=== PATIENT | female | born 1975 | race Caucasian/White ===

== ENCOUNTER 2017-09-24 12:12 | Emergency (ER) | payer BC ==
[2017-09-24 13:47] LABS: ABS Basophils 0.1 10^3/ul (0-0.2); ABS Eosinophils 0.1 10^3/ul (0-0.6); ABS Lymphocytes 2.2 10^3/ul (1.0-4.8); ABS Monocytes 0.5 10^3/ul (0-0.8); ABS Neutrophils 6.5 10^3/ul (1.5-7.7); ABS Nucleated RBC 0 10^3/ul; Eosinophil % 0.6 % (0-6); Hematocrit 39 % (35-47); Hemoglobin 13.4 g/dl (12.0-16.0); Lymphocyte % 23.9 % (25-47); Mean Corpuscular HGB Conc 34 g/dl (31-36); Mean Corpuscular Hemoglobin 30 pg (27-31); Mean Corpuscular Volume 90 fL (80-97); Mean Platelet Volume 8.5 um3 (7.4-10.4); Nucleated Red Blood Cells % 0; Platelet Count 292 10^3/ul (150-450); Red Blood Count 4.39 10^6/ul (4.0-5.4); Red Cell Distribution Width 13 % (10.5-15); White Blood Count 9.4 10^3/ul (3.5-10.8)
--- NOTE | 2017-09-24 13:48 | RAD ---
INDICATION: Chest pain. COMPARISON: Comparison is made with a prior study from January 31, 2014. TECHNIQUE: Dual-energy PA and lateral views of the chest were obtained. FINDINGS: The heart is within normal limits in size. Mediastinal and hilar contours appear within normal limits. The lungs are clear. No pleural effusion or pneumothorax is seen. IMPRESSION: NO EVIDENCE FOR ACTIVE CARDIOPULMONARY DISEASE.
[2017-09-24 14:08] LABS: INR 1.01 (0.77-1.02)
[2017-09-24 17:04] VITALS: BP 150/92
--- NOTE | 2017-09-24 18:35 | ED ---
Cyndi Sneed Elizabeth, scribed for Ben Markham MD on 09/24/17 at 1313 . HPI Chest Pain - HPI Summary HPI Summary: This patient is a 42 year old F presenting to [facility] with a chief complaint of tight left chest pain since 2 hours ago. The patient rates the pain 5/10 in severity. Symptoms aggravated by nothing. Symptoms alleviated by nothing. Patient reports left chest pain and shortness of breath at 01:30 this morning for 1 hour, but it resolved and she was able to go back to sleep. Patient also reports nausea, pressure and pain in her neck and left arm. Patient took ASA x2 this morning. Patient reports feeling a sharp pain in her chest last week after hiking up a hill. - History of Current Complaint Chief Complaint: EDChestPainROMI Time Seen by Provider: 09/24/17 12:28 Hx Obtained From: Patient Onset/Duration: Started Hours Ago - 2 hours ago Timing: Constant, Lasting Hours Current Severity: Moderate Pain Intensity: 5 Pain Scale Used: 0-10 Numeric Chest Pain Location: Left Anterior Chest Pain Radiates To:: Arm - left arm, Neck Character: Pressure/Squeezing, Tightness Aggravating Factor(s): Nothing Alleviating Factor(s): Nothing Associated Signs and Symptoms: Positive: Chest Pain, Shortness of Breath, Nausea Related History: Similar Episode/Dx as: - at 01:30 this morning, resolved after 1 hour - Allergy/Home Medications Allergies/Adverse Reactions: Allergies Allergy/AdvReac Type Severity Reaction Status Date / Time eletriptan AdvReac See Comment Verified 09/24/17 13:33 sumatriptan AdvReac See Comment Verified 09/24/17 13:33 Home Medications: Home Medications Naproxen TAB* [Naprosyn 250 mg TAB*] 500 mg PO DAILY PRN 09/24/17 [History Confirmed 09/24/17] Norethindrone (NF) [Stacia (NF)] 0.35 mg PO DAILY 09/24/17 [History Confirmed 09/24/17] Zolmitriptan (NF) [Zomeg (NF)] 2.5 mg SL DAILY PRN 09/24/17 [History Confirmed 09/24/17] PMH/Surg Hx/FS Hx/Imm Hx Endocrine/Hematology History: Denies: Hx Diabetes Cardiovascular History: Denies: Hx Hypertension, Hx Pacemaker/ICD Sensory History: Denies: Hx Hearing Aid Neurological History: Reports: Hx Migraine Psychiatric History: Denies: Hx Panic Disorder - Surgical History Surgery Procedure, Year, and Place: 2002- LAPAPORSCOPIC. WISDOM TEETH Infectious Disease History: No Infectious Disease History: Denies: Traveled Outside the [place] in Last 30 Days - Family History Known Family History: Positive: Cardiac Disease - dad had ME in his early 60s, mom had ME, Diabetes - dad has diabetes - Social History Hx Tobacco Use: No Review of Systems Positive: Chest Pain Positive: Shortness Of Breath Positive: Nausea Musculoskeletal: Other - pain in left arm All Other Systems Reviewed And Are Negative: Yes Physical Exam - Summary Physical Exam Summary: Appearance: The patient is well-nourished in no acute distress and in no acute pain. Skin: The skin is warm and dry and skin color reflects adequate perfusion. HEENT: The head is normocephalic and atraumatic. The pupils are equal and reactive. The conjunctivae are clear and without drainage. Nares are patent and without drainage. Mouth reveals moist mucous membranes and the throat is without erythema and exudate. The external ears are intact. The ear canals are patent and without drainage. The tympanic membranes are intact. Neck: the neck is supple with full range of motion and non-tender. There are no carotid bruits. There is no neck vein distension. Respiratory: Chest is non-tender. Lungs are clear to auscultation and breath sounds are symmetrical and equal. Cardiovascular: Heart is regular rate and rhythm. There is no murmur or rub auscultated. There is no peripheral edema and pulses are symmetrical and equal. Abdomen: The abdomen is soft and non-tender. There are normal bowel sounds heard in all four quadrants and there is no organomegaly palpated. Musculoskeletal: There is no back tenderness noted. Extremities are non-tender with full range of motion. There is good capillary refill. There is no peripheral edema or calf tenderness elicited. Neurological: Patient is alert and oriented to person, place and time. The patient has symmetrical motor strength in all four extremities. Cranial nerves are grossly intact. Deep tendon reflexes are symmetrical and equal in all four extremities. Psychiatric: The patient has an appropriate affect and does not exhibit any anxiety or depression. Triage Information Reviewed: Yes Vital Signs On Initial Exam: Initial Vitals Temp Pulse Resp BP Pulse Ox 99.2 F 80 17 175/102 100 09/24/17 12:19 09/24/17 12:19 09/24/17 12:19 09/24/17 12:19 09/24/17 12:19 Vital Signs Reviewed: Yes Diagnostics - Vital Signs Vital Signs Temp Pulse Resp BP Pulse Ox 09/24/17 12:19 99.2 F 80 17 175/102 100 - Laboratory Lab Results: Lab Results 09/24/17 09/24/17 09/24/17 Range/Units 13:36 13:36 13:36 WBC 9.4 (3.5-10.8) 10^3/ul RBC 4.39 (4.0-5.4) 10^6/ul Hgb 13.4 (12.0-16.0) g/dl Hct 39 (35-47) % MCV 90 (80-97) fL MCH 30 (27-31) pg MCHC 34 (31-36) g/dl RDW 13 (10.5-15) % Plt Count 292 (150-450) 10^3/ul MPV 8.5 (7.4-10.4) um3 Neut % (Auto) 69.6 (38-83) % Lymph % (Auto) 23.9 L (25-47) % [place] % (Auto) 5.3 (0-7) % Eos % (Auto) 0.6 (0-6) % Baso % (Auto) 0.6 (0-2) % Absolute Neuts (auto) 6.5 (1.5-7.7) 10^3/ul Absolute Lymphs (auto) 2.2 (1.0-4.8) 10^3/ul Absolute Monos (auto) 0.5 (0-0.8) 10^3/ul Absolute Eos (auto) 0.1 (0-0.6) 10^3/ul Absolute Basos (auto) 0.1 (0-0.2) 10^3/ul Absolute Nucleated RBC 0 10^3/ul Nucleated RBC % 0 INR (Anticoag Therapy) 1.01 (0.77-1.02) D-Dimer, Quantitative < 200 (Less Than 230) ng/mL Sodium 138 L (139-145) mmol/L Potassium 4.0 (3.5-5.0) mmol/L Chloride 106 (101-111) mmol/L Carbon Dioxide 27 (22-32) mmol/L Anion Gap 5 (2-11) mmol/L BUN 12 (6-24) mg/dL Creatinine 0.52 (0.51-0.95) mg/dL Est GFR ( Amer) 167.1 (>60) Est GFR (Non-Af Amer) 130.0 (>60) BUN/Creatinine Ratio 23.1 H (8-20) Glucose 92 (70-100) mg/dL Lactic Acid (0.5-2.0) mmol/L Calcium 9.4 (8.6-10.3) mg/dL Total Bilirubin 0.50 (0.2-1.0) mg/dL AST 14 (13-39) U/L ALT 11 (7-52) U/L Alkaline Phosphatase 63 (34-104) U/L Total Creatine Kinase 100 (10-223) U/L CK-MB (CK-2) 2.0 (0.6-6.3) ng/mL Troponin I 0.00 (<0.04) ng/mL Total Protein 6.8 (6.4-8.9) g/dL Albumin 4.2 (3.2-5.2) g/dL Globulin 2.6 (2-4) g/dL Albumin/Globulin Ratio 1.6 (1-3) TSH 2.16 (0.34-5.60) mcIU/mL Beta HCG, Quant < 0.60 mIU/mL 09/24/17 09/24/17 Range/Units 13:36 15:55 WBC (3.5-10.8) 10^3/ul RBC (4.0-5.4) 10^6/ul Hgb (12.0-16.0) g/dl Hct (35-47) % MCV (80-97) fL MCH (27-31) pg MCHC (31-36) g/dl RDW (10.5-15) % Plt Count (150-450) 10^3/ul MPV (7.4-10.4) um3 Neut % (Auto) (38-83) % Lymph % (Auto) (25-47) % [place] % (Auto) (0-7) % Eos % (Auto) (0-6) % Baso % (Auto) (0-2) % Absolute Neuts (auto) (1.5-7.7) 10^3/ul Absolute Lymphs (auto) (1.0-4.8) 10^3/ul Absolute Monos (auto) (0-0.8) 10^3/ul Absolute Eos (auto) (0-0.6) 10^3/ul Absolute Basos (auto) (0-0.2) 10^3/ul Absolute Nucleated RBC 10^3/ul Nucleated RBC % INR (Anticoag Therapy) (0.77-1.02) D-Dimer, Quantitative (Less Than 230) ng/mL Sodium (139-145) mmol/L Potassium (3.5-5.0) mmol/L Chloride (101-111) mmol/L Carbon Dioxide (22-32) mmol/L Anion Gap (2-11) mmol/L BUN (6-24) mg/dL Creatinine (0.51-0.95) mg/dL Est GFR ( Amer) (>60) Est GFR (Non-Af Amer) (>60) BUN/Creatinine Ratio (8-20) Glucose (70-100) mg/dL Lactic Acid 0.5 (0.5-2.0) mmol/L Calcium (8.6-10.3) mg/dL Total Bilirubin (0.2-1.0) mg/dL AST (13-39) U/L ALT (7-52) U/L Alkaline Phosphatase (34-104) U/L Total Creatine Kinase (10-223) U/L CK-MB (CK-2) (0.6-6.3) ng/mL Troponin I 0.00 (<0.04) ng/mL Total Protein (6.4-8.9) g/dL Albumin (3.2-5.2) g/dL Globulin (2-4) g/dL Albumin/Globulin Ratio (1-3) TSH (0.34-5.60) mcIU/mL Beta HCG, Quant mIU/mL Result Diagrams: 09/24/17 13:36 09/24/17 13:36 Lab Statement: Any lab studies that have been ordered have been reviewed, and results considered in the medical decision making process. - Radiology CXR Xray Interpretation: No Acute Changes - IMPRESSION: NO EVIDENCE FOR ACTIVE CARDIOPULMONARY DISEASE. Dr. Markham has reviewed this report. Radiology Interpretation Completed By: Radiologist - EKG 12:19 Cardiac Rate: NL - at 81 BPM EKG Rhythm: Sinus Rhythm EKG Interpretation: NSR, incomplete RBBB Chest Pain Course/Dx - Course Course Of Treatment: Ms. Patel presented with an episode of chest pressure that resolved while she was here. She had had two previous episodes that seemed to come on with exertion and be relieved with rest. She does have a family history of CAD. Her W/U here including a d-dimer and delayed troponin was negative here and her vitals remained stable. I recommended close F/U. - Diagnoses Provider Diagnoses: Chest pain Discharge - Sign-Out/Discharge Documenting (check all that apply): Discharge/Admit/Transfer - Discharge Plan Condition: Stable Disposition: HOME Patient Education Materials: Chest Pain (ED) Referrals: Gem KNIGHT,Kaur Chamorro [Primary Care Provider] - 2 Days Additional Instructions: Follow up with primary care physician in 2-3 days. Return to the emergency department with any new or worsening symptoms. - Billing Disposition and Condition Condition: STABLE Disposition: HOME The documentation as recorded by the Cyndi heard Elizabeth accurately reflects the service I personally performed and the decisions made by , Ben Markham MD.
== END 2017-09-24 17:08 | disposition home or self-care (01) ==
LOC: ED 12:12
DX: R07.9 Chest pain, unspecified (principal); R06.2 Wheezing; R11.0 Nausea; R06.02 Shortness of breath
CPT/HCPCS: 36415; 71046; 80053; 82550; 82553; 83605; 84443; 84484; 84702; 85025; 85379; 85610; 93005; 99283

== ENCOUNTER 2019-05-23 08:07 | Inpatient (IN) | payer BC, OTHER ==
[2019-05-23] MEDS ORDERED: Dinoprostone* 10 MG VAG.SUPP VAGINAL ONE (08:34)
[2019-05-23] MEDS ORDERED: Buffered Lidocaine 1% SYRIN* 1 ML/SYRINGE INTRADERM ONE (08:34)
[2019-05-23] MEDS ORDERED: Lactated Ringers 1000 ML Bag* 1,000 ML IV ONE (08:34)
[2019-05-23] MEDS ORDERED: Penicillin G Potassium IV* 5,000,000 UNITS in NS 0.9% 100 ML* 100 ML IVPB ONE (09:00)
[2019-05-23 09:46] LABS: ABS Eosinophils 0.1 10^3/ul (0-0.6); ABS Lymphocytes 1.6 10^3/ul (1.0-4.8); ABS Monocytes 0.7 10^3/ul (0-0.8); ABS Neutrophils 9.7 10^3/ul (1.5-7.7); Eosinophil % 0.6 %; Hematocrit 35 % (35-47); Hemoglobin 11.9 g/dL (12.0-16.0); Lymphocyte % 13.5 %; Mean Corpuscular HGB Conc 34 g/dL (31-36); Mean Corpuscular Hemoglobin 30 pg (27-31); Mean Corpuscular Volume 87 fL (80-97); Mean Platelet Volume 8.9 fL (7.4-10.4); Platelet Count 282 10^3/uL (150-450); Red Blood Count 4.02 10^6 /uL (3.70-4.87); Red Cell Distribution Width 14 % (10-15); White Blood Count 12.2 10^3/uL (3.5-10.8)
[2019-05-23 10:03] LABS: Urine Benzodiazepine Screen None Detected (None Detect); Urine Opiates Screen None Detected (None Detect)
[2019-05-23 10:04] LABS: Albumin 3.3 g/dL (3.2-5.2); Albumin/Globulin Ratio 1.1 (1-3); BUN/Creatinine Ratio 31.1 (8-20); Calcium 9.2 mg/dL (8.6-10.3); EGFR African American 184.9 (>60); EGFR Non-African American 152.8 (>60); Globulin 2.9 g/dL (2-4); Potassium 4.3 mmol/L (3.5-5.0); Total Bilirubin 0.3 mg/dL (0.2-1.0); Total Protein 6.2 g/dL (6.4-8.9); Uric Acid 4.9 mg/dL (2.3-6.6)
--- NOTE | 2019-05-23 11:14 | HP ---
General Information - Reason for Visit IOL at 37w1d secondary to CHTN with SI PreE - General Information Maternal Age: 43 Grav: 6 Para: 1 SAB: 4 IEA: 0 Estimated Due Date: 06/12/19 Determined By: Early Ultrasound Maternal Blood Type and Rh: O Negative - Results this Serology/RPR Result: Non-Reactive Rubella Result: Immune HBsAg Result: Negative HIV Result: Negative GBS Culture Result: Positive Past Medical History Delivery History: Hx Complicated Vaginal Delivery - PreEclampsia with G1 Pertinent Past Medical History: See Records Pertinent Past Surgical History: None - Laparotomy with RSO in 06/23 endometriosis Pertinent Family History: See Records - Antepartal Records Antepartal Records: Reviewed, Complicated by: - CHTN with SI PreE, GDMA2, AMA at age 43, RH negative Review of Systems Constitutional: Comfortable CV Complaint: No Respiratory: Shortness of Breath: No Gastrointestinal: No Nausea/Vomiting, Normal Bowel Movement Genitourinary: No Dysuria, No Bleeding, No Leaking Fluid Musculoskeletal: No Complaint, No Epigastric Pain Neurological: No Headache, No Visual Changes Movement: Normal - Denies MONSALVE, changes in vision, RUQ pain, fever, chills, n/v, cp, sob Exam Allergies/Adverse Reactions: Allergies eletriptan Adverse Reaction (Verified 05/23/19 10:10) See Comment "whole body heaviness" sumatriptan Adverse Reaction (Verified 05/23/19 10:10) See Comment "whole body heaviness" BP 145/90 Pulse 90 Resp 18 Temp 97.9 O2 Sat 98% Lab Values - Entire Visit: Laboratory Tests 05/23/19 05/23/19 05/23/19 09:20 09:20 09:20 WBC 12.2 H RBC 4.02 Hgb 11.9 L Hct 35 MCV 87 MCH 30 MCHC 34 RDW 14 Plt Count 282 MPV 8.9 Neut % (Auto) 79.5 Lymph % (Auto) 13.5 Wheeler % (Auto) 6.0 Eos % (Auto) 0.6 Baso % (Auto) 0.4 Absolute Neuts (auto) 9.7 H Absolute Lymphs (auto) 1.6 Absolute Monos (auto) 0.7 Absolute Eos (auto) 0.1 Absolute Basos (auto) 0.0 Absolute Nucleated RBC 0.0 Nucleated RBC % 0.0 Sodium 136 Potassium 4.3 Chloride 108 Carbon Dioxide 21 L Anion Gap 7 BUN 14 Creatinine 0.45 L Est GFR ( Amer) 184.9 Est GFR (Non-Af Amer) 152.8 BUN/Creatinine Ratio 31.1 H Glucose 92 POC Glucose (mg/dL) Uric Acid 4.9 Calcium 9.2 Total Bilirubin 0.30 AST 22 ALT 20 Alkaline Phosphatase 95 Total Protein 6.2 L Albumin 3.3 Globulin 2.9 Albumin/Globulin Ratio 1.1 Urine Opiates Screen Ur Barbiturates Screen Ur Phencyclidine Scrn Ur Amphetamines Screen U Benzodiazepines Scrn Urine Cocaine Screen U Cannabinoids Screen Blood Type O Negative 05/23/19 05/23/19 09:20 09:58 WBC RBC Hgb Hct MCV MCH MCHC RDW Plt Count MPV Neut % (Auto) Lymph % (Auto) Wheeler % (Auto) Eos % (Auto) Baso % (Auto) Absolute Neuts (auto) Absolute Lymphs (auto) Absolute Monos (auto) Absolute Eos (auto) Absolute Basos (auto) Absolute Nucleated RBC Nucleated RBC % Sodium Potassium Chloride Carbon Dioxide Anion Gap BUN Creatinine Est GFR ( Amer) Est GFR (Non-Af Amer) BUN/Creatinine Ratio Glucose POC Glucose (mg/dL) 80 Uric Acid Calcium Total Bilirubin AST ALT Alkaline Phosphatase Total Protein Albumin Globulin Albumin/Globulin Ratio Urine Opiates Screen None detected Ur Barbiturates Screen None detected Ur Phencyclidine Scrn None detected Ur Amphetamines Screen None detected U Benzodiazepines Scrn None detected Urine Cocaine Screen None detected U Cannabinoids Screen None detected Blood Type - Measurements Height: 5 ft 3 in Weight: 218 lb Weight in lbs: 218.355992 Body Mass Index (BMI): 38.6 Pre- Weight: 197 lb Weight Gained This : 21 lbs and 0 ozs - Exam Breast: Breast Exam Deferred CVA: No CVA Tenderness Extremities: No Edema Heart: Normal Rhythm/Heart Sounds HEENT: No Significant Findings Lungs: Clear Bilaterally Rectal: Rectal Exam Deferred Reflexes: DTR 2+ - normoreflexive Thyroid: No Thyromegaly Other Exam Findings: no clonus - Abdominal Exam Abdomen Exam: Non-Tender, Fundal Height Consistent with Dates - Ultrasound/Biophysical Profile Ultrasound Status: Bedside Exam Ultrasound Findings: Vertex Targeted Exam Findings Estimated Weight: 7#8oz Cervical Exam: 2cm Effacement: 50% Station: -3 Presenting Part: Vertex Membrane Status: Intact Bleeding/Discharge: None EFM Findings - External Monitor Findings Baseline Heart Rate: 125 External Monitor Findings: Accelerations Present, No Pattern of Variable or Late Decelerations, Variability Moderate, Baseline Stable External Monitor Findings Comment: Reactive with moderate variability, no decelerations Contractions: Irregular Assessment/Plan - Assessment 43 y/o at 37w1d with CHTN w/ SI PreE, GDMA2 also complicated by AMA, RH negative GBS + - Obstetrical Risk Factors Obstetrical Risk Factors: GBS Positive, PreEclampsia, Chronic Hypertension, Gestational Diabetes - Plan Plan: Induction, Antibiotic Prophylaxis - IOL secondary to CHTN with SI PreE, pt is asymptomatic, no persistent severe range BP's, will continue to monitor closely, check labs now. GDMA2 - will check FSBG post prandial while still in latent phase beginning IOL. Once in labor, will check FSBG q 2 hours, Insulin Drip if indicated. RH Negative - Rhogam as indicated. GBS Positive - Penicillin with ROM'd or active labor. Will start IOL with cervidil.
--- NOTE | 2019-05-23 11:46 | PTEDU ---
Patient Name: KRISTINE MACKENZIE GURDEEPKRISTINE selected video: Never Ever Shake a Baby to view on 05/23/2019 at 11:44:56 AM from [facility] [id number]
[2019-05-23] MEDS ORDERED: Labetalol TAB* 100 MG PO ONE (13:06)
[2019-05-23] MEDS: Lactated Ringers 1000 ML Bag* 1,000 ML IV SCH (19:13)
[2019-05-23] MEDS ORDERED: Labetalol TAB* 200 MG PO SCH (21:00)
[2019-05-23] MEDS ORDERED: Labetalol TAB* 100 MG PO SCH (21:00)
[2019-05-23] MEDS ORDERED: Promethazine INJ(RESTRICTED)* 25 MG/ML 1 ML VIAL IV PRN (22:38)
[2019-05-23] MEDS ORDERED: Morphine 4 MG/ML VIAL (1 ml) 4 MG/ML VIAL IV PRN (22:38)
[2019-05-23] MEDS ORDERED: Morphine INJ* 4 MG/ML 1 ML SYRINGE (NEW SYRINGE VERSION) IV PRN (22:53)
[2019-05-24] MEDS: Penicillin G Potassium IV* 3,000,000 UNITS in NS 0.9% 100 ML* 100 ML IVPB SCH ×5 (00:46→17:08)
--- NOTE | 2019-05-24 03:08 | PN ---
Progress Note - Progress Note Date of Service: 05/24/19 Note: Pt had cervidil placed in the 1000 hour on 05/23. Removed after developing tachysystole. Pt noted to have changed cervix to 2cm at that time, soft, anterior. Pt continued to contract throughout the afternoon and requested IV pain medications. Was given Morphine 4mg and Phenergan 12.5mg with good effect. She slept for several hours. Re-examined on wakening and 4cm/50%/-2. AROM'd with clear fluid at ~3am. Gen: nad, aaox3 CV: rrr Pulm: non-labored respirations Abd: charissa, moderate to palpation Ext: warm, nttp, no edema, normoreflexive, no clonus FHT: 135/moderate/+accels/no decels Maguayo: q 2-4 minutes 43 y/o at 37w2d with CHTN with SI PreE, here for IOL: - AVSS, afebrile, hemodynamically stable - IOL: cervidil --> AROM at 3am 1/3 with clear fluid, charissa regularly, will expectantly manage, augment as clinically indicated - CHTN with SI PreE: Plts, AST/ALT, Cr, Uric Acid all WNL. 24 hour urine protein 609 collected outpatient. Pt is asymptomatic, denies MONSALVE, changes in vision, RUQ pain, normoreflexive and negative clonus. She has occasional severe range BP's, but no persistent severe range. Continue Labetalol 200mg BID. If severe range BP's or other s/sx of severe features will push IV Anti- hypertensive and start Magnesium sulfate for seizure ppx. - GDMA2 - Last FSBG was 2 hours PP after dinner and 107. Will re-check in AM at 6am and q 2 hours thereafter. - GBS Positive - on Penicillin for GBS PPX DO EUGENE Mahmood
[2019-05-24] MEDS ORDERED: Labetalol TAB* 200 MG PO ONE (05:45)
[2019-05-24] MEDS ORDERED: Oxytocin in LR* 20 UNITS/1,000 ML BAG IVPB SCH (07:00)
[2019-05-24] MEDS ORDERED: OBEPIDURAL* 250 ML EPIDURAL ONE (10:58)
[2019-05-24] MEDS ORDERED: Sodium Citrate/Citric Acid* 15 ML UDC PO PRN (12:18)
[2019-05-24] MEDS ORDERED: Famotidine TAB* 20 MG PO PRN (12:18)
[2019-05-24] MEDS ORDERED: Lactated Ringers 1000 ML Bag* 500 ML IV PRN ×2 (12:18)
[2019-05-24] MEDS ORDERED: Phenylephrine 40 MCG/ML SYRINGE IV PUSH PRN ×2 (12:18)
[2019-05-24] MEDS ORDERED: Lactated Ringers 1000 ML Bag* 1,000 ML IV ONE (12:18)
[2019-05-24] MEDS ORDERED: Lactated Ringers 1000 ML Bag* 1,000 ML IV SCH ×3 (13:00→21:00)
[2019-05-24] MEDS ORDERED: OBEPIDURAL* 250 ML EPIDURAL SCH (13:00)
[2019-05-24] MEDS: Lactated Ringers 1000 ML Bag* 1,000 ML IV SCH (13:33)
[2019-05-24] MEDS ORDERED: Lidocaine 2% w/ EPI 1:200,000* 20 ML SDV VIAL ONE (16:33)
[2019-05-24] MEDS: Labetalol TAB* 200 MG PO SCH ×3 (17:07→21:23)
[2019-05-24] MEDS: Misoprostol TAB* 200 MCG ONE ×2 (20:30→21:51)
[2019-05-24] MEDS ORDERED: Acetaminophen TAB* 325 MG PO PRN (20:43)
[2019-05-24] MEDS ORDERED: Dibucaine 1% 28.35 GM TUBE PR PRN (20:43)
[2019-05-24] MEDS ORDERED: Glycerin ADULT SUPP PR PRN (20:43)
[2019-05-24] MEDS ORDERED: Simethicone TAB* 80 MG TAB.CHEW PO SCH (21:00)
[2019-05-24] MEDS: Ibuprofen TAB* 600 MG PO PRN (21:00)
[2019-05-24] MEDS: Witch Hazel PAD* JAR TOPICAL PRN (21:01)
--- NOTE | 2019-05-24 21:24 | PROCNOTE ---
[facility] OB: Delivery Note - Delivery A Date of : 05/24/19 Time of : 20:12 [place] Sex: Female Score 1 Minute: 9 Score 5 Minutes: 9 Gestational Age in Weeks and Days at Delivery: 37 Weeks and 2 Days Delivery Method: Spontaneous Vaginal Labor: Induced Did Patient attempt ?: N/A, No Previous Amniotic Fluid: Clear Estimated Blood Loss: 300 Anesthesia/Analgesia: CEI for Labor Delivered By: Alicia Michelle - Nursery Level of Nursery: Regular/Bedside - Perineum Perineal Injury: 1st Degree Perineal Repair: By Delivering Practioner - Events Delivery Events of Note: Pitocin During Labor - Additional Delivery Notes Additional Delivery Notes: Pt came for induction due to CHTN with superimposed PEC. She got a cervidil and began charissa, underwent AROM and then was started on pitocin. Total length of induction was about 36hrs. She received an epidural and progressed to fully dilated. She pushed x2hrs to deliver the infant's head in PETER position followed quickly by the shoulders and the rest of the body. Baby was placed on mom's abdomen. After >1min cord was clamped x2 and cut. Cord blood collected. Fundus initially firm but then she had several gushes of fluid so cytotec was given. First degree lac was repaired with 3-0 vicryl rapide in the usual fashion. Fundus firm and with good hemostasis. Mom and baby stable at time of note.
[2019-05-25] MEDS ORDERED: Lidocaine 1% INJ* 10 MG/ML 30 ML SDV ONE (00:16)
[2019-05-25] MEDS: Ibuprofen TAB* 600 MG PO PRN ×3 (02:44→17:04)
[2019-05-25] MEDS: Labetalol TAB* 200 MG PO SCH ×2 (08:46→20:51)
[2019-05-25] MEDS: Docusate CAP* 100 MG PO SCH ×3 (08:46→20:53)
[2019-05-25 11:44] LABS: ABS Basophils 0.1 10^3/ul (0-0.2); ABS Eosinophils 0.1 10^3/ul (0-0.6); ABS Lymphocytes 2.4 10^3/ul (1.0-4.8); ABS Neutrophils 14.2 10^3/ul (1.5-7.7); Eosinophil % 0.4 %; Hematocrit 32 % (35-47); Hemoglobin 10.9 g/dL (12.0-16.0); Lymphocyte % 13.3 %; Mean Corpuscular HGB Conc 34 g/dL (31-36); Mean Corpuscular Hemoglobin 30 pg (27-31); Mean Corpuscular Volume 88 fL (80-97); Mean Platelet Volume 9.3 fL (7.4-10.4); Platelet Count 272 10^3/uL (150-450); Red Blood Count 3.68 10^6 /uL (3.70-4.87); Red Cell Distribution Width 14 % (10-15); White Blood Count 17.7 10^3/uL (3.5-10.8)
[2019-05-25] MEDS: Witch Hazel PAD* JAR TOPICAL PRN (11:47)
[2019-05-26] MEDS: Docusate CAP* 100 MG PO SCH ×3 (05:09→13:09)
[2019-05-26] MEDS: Ibuprofen TAB* 600 MG PO PRN ×2 (06:13→13:09)
[2019-05-26] MEDS: Ferrous Gluconate TAB* 324 MG TAB PO SCH (08:00)
[2019-05-26] MEDS: Labetalol TAB* 200 MG PO SCH (08:21)
[2019-05-26 08:34] VITALS: BP 142/74
[2019-05-26] MEDS ORDERED: RHO D Immune Globulin (HUMAN)* 300 MCG = 1,500 I.U. INJ IM ONE (11:03)
== END 2019-05-26 18:25 | disposition home or self-care (01) | DRG 807 ==
LOC: MCHOBOUT 08:07 → MCHOB 09:12
PROVIDERS: ADMIT Obstetrics & Gynecology; ATTEND Obstetrics & Gynecology
PROC: 10E0XZZ Delivery of Products of Conception, External Approach (ICD-10-PCS; principal; 2019-05-24)
PROC: 3E033VJ Introduction of Other Hormone into Peripheral Vein, Percutaneous Approach (ICD-10-PCS; 2019-05-24)
PROC: 10907ZC Drainage of Amniotic Fluid, Therapeutic from Products of Conception, Via Natural or Artificial Opening (ICD-10-PCS; 2019-05-24)
PROC: 0HQ9XZZ Repair Perineum Skin, External Approach (ICD-10-PCS; 2019-05-24)
DX: O11.4 Pre-existing hypertension with pre-eclampsia, complicating childbirth (principal); Z37.0 Single live birth; O10.92 Unspecified pre-existing hypertension complicating childbirth; O24.429 Gestational diabetes mellitus in childbirth, unspecified control; O99.824 Streptococcus B carrier state complicating childbirth; O70.0 First degree perineal laceration during delivery; Z3A.37 37 weeks gestation of pregnancy
CPT/HCPCS: 36415; 80053; 80307; 84550; 85025; 85461; 86850; 86870; 86880; 86900; 86901; 88307; A9270-GY; J2270; J2540; J2550; J2790